=== PATIENT | female | born 1990 | race Caucasian/White ===

== ENCOUNTER 2017-08-22 13:03 | Emergency (ER) | payer OTHER, BC ==
[2017-08-22 13:10] VITALS: BP 120/73; PULSE 89; RESP 16; TEMP 97.7; O2SAT 97
[2017-08-22] MEDS ORDERED: ONDANSETRON DISINTEGRATING 4 MG TAB PO ONE (13:10)
[2017-08-22] MEDS ORDERED: ONDANSETRON DISINTEGRATING 4 MG TAB ONE (13:11)
--- NOTE | 2017-08-22 13:31 | EDPHY ---
H & P Stated Complaint: vomit/diarrhea since this am, h/a Time Seen by Provider: 08/22/17 13:30 - Personal History LMP (Females 10-55): 8-14 Days Ago Current Tetanus/Diphtheria Vaccine: Unsure Current Tetanus Diphtheria and Acellular Pertussis (TDAP): Unsure - Medical/Surgical History Hx Asthma: No Hx Chronic Respiratory Disease: No Hx Diabetes: No Hx Cardiac Disease: No Hx Renal Disease: No Hx Cirrhosis: No Hx Alcoholism: No Hx HIV/AIDS: No Hx Splenectomy or Spleen Trauma: No Other PMH: denies - Social History Smoking Status: Never smoked Constitutional: Initial Vital Signs Temperature (C) 36.5 C 08/22/17 13:06 Heart Rate 89 08/22/17 13:06 Respiratory Rate 16 08/22/17 13:06 Blood Pressure 120/73 08/22/17 13:06 O2 Sat (%) 97 08/22/17 13:06 O2 Delivery Mode Room Air Allergies/Adverse Reactions: tetracycline Allergy (Verified 08/22/17 13:06) Home Medications: Medication Instructions Recorded Ondansetron Odt [Zofran Odt 4 mg 4 mg PO Q4 PRN #10 tab 08/22/17 (RX)] Medical Decision Making ED Course/Re-evaluation: CHIEF COMPLAINT: N/V/D, headache HISTORY OF PRESENT ILLNESS: The patient is a 26 y/o female complaining of a frontal headache onset 04:00 this morning, 9.5 hours ago. She developed nausea and vomiting around 10:00 and then subsequently developed diarrhea. Eating and drinking aggravate her symptoms. No fever, abdominal pain, cough, cold, sore throat, earache, chest pain, dyspnea. She is normally healthy. REVIEW OF SYSTEMS: A 10 point review of systems was performed and is negative with the exception of the elements mentioned in the history of present illness. PHYSICAL EXAM: HR, BP, O2 Sat, RR. Temp noted General Appearance: Alert, well hydrated, appropriate, and non-toxic appearing. Head: Atraumatic without scalp tenderness or obvious injury Eyes: Pupils equal, round, reactive to light and accommodation, EOMI, no trauma , no injection. Nose: Atraumatic, no rhinorrhea, clear. Throat: There is no erythema or exudates, no lesions, normal tonsils, mucus membranes moist. Neck: Supple Respiratory: No retractions, no distress, no wheezes, and no accessory muscle use. Lungs are clear to auscultation bilaterally. Cardiovascular: Regular rate and rhythm, no murmurs, rubs, or gallops. Good capillary refill all extremities. Gastrointestinal: Abdomen is soft, nontender, non-distended, no masses, no rebound, no guarding, no peritoneal signs. Musculoskeletal: Normal active ROM of all extremities, atraumatic. Neurological: Alert, appropriate, and interactive. The patient has non-focal cranial nerves, motor, sensory, and cerebellar exam. Skin: No rashes, good turgor, no nodules on palpation. Past medical history: Denies Past surgical history: Denies Family history: Noncontributory Social history: Employed DIFFERENTIAL DIAGNOSIS: The differential diagnosis for the patient's nausea and vomiting included but was not limited to gastroenteritis, gastritis, appendicitis, and medication side effect. MEDICAL DECISION MAKING: This is a healthy and well-appearing 26 y/o female complaining of 9.5-hour history of headache with subsequent N/V/D developing through the morning. She has a benign abdomen and is afebrile here. Normal neuro exam. Symptoms consistent with infectious gastroenteritis. Plan for IV, ISTAT, and symptom management. 1L IV NS, 12.5mg IV Phenergan ordered. 4mg PO Zofran administered in triage. BGL mildly low around 67, likely because patient has not been able to eat much today. Patient's symptoms have improved upon reassessment. Abdomen remains benign. Patient will be discharged home with standard gastroenteritis care and follow up instructions. Script for Zofran given and return precautions discussed. She is comfortable with this plan. - Data Points Laboratory Results: 08/22/17 13:35 POC Hgb 16.0 gm/dL gm/dL (12.6-16.3) POC Hct 47 % % (38-47) POC Sodium 142 mEq/L mEq/L (135-145) POC Potassium 4.1 mEq/L mEq/L (3.3-5.0) POC Chloride 101 mEq/L mEq/L (97-110) POC BUN 20 mg/dL mg/dL (7-23) POC Creatinine 0.7 mg/dL mg/dL (0.6-1.0) POC Glucose 67 mg/dL L mg/dL (70-100) Medications Given: Discontinued Medications Sodium Chloride (Ns) 1,000 mls @ 0 mls/hr IV ONCE ONE PRN Reason: Wide Open Stop: 08/22/17 14:03 Last Admin: 08/22/17 14:04 Dose: 1,000 mls Metoclopramide HCl (Reglan Injection) 10 mg IVP EDNOW ONE Stop: 08/22/17 13:37 Last Admin: 08/22/17 14:05 Dose: Not Given Ondansetron HCl (Zofran Odt) 4 mg PO EDNOW ONE Stop: 08/22/17 13:11 Last Admin: 08/22/17 13:12 Dose: 4 mg Promethazine HCl (Phenergan) 12.5 mg IVP EDNOW ONE Stop: 08/22/17 14:01 Last Admin: 08/22/17 14:05 Dose: 12.5 mg Point of Care Test Results: 08/22/17 13:35 POC Sodium 142 POC Potassium 4.1 POC Chloride 101 POC BUN 20 POC Creatinine 0.7 POC Glucose 67 L Departure - Departure Disposition: Home, Routine, Self-Care Clinical Impression: Acute gastroenteritis Condition: Good Instructions: Gastroenteritis (ED) Additional Instructions: 1. Increase fluid intake as tolerated. Rest. 2. Use Zofran as prescribed as needed for nausea and vomiting. 3. Use Imodium as directed on the packaging if needed for diarrhea. 4. Practice good hand hygiene and limit contact with others while you have diarrhea as you are likely contagious. 5. Follow up with your primary care provider for unimproved symptoms over the next couple days. 6. Return to the ED for worsening of condition. Referrals: Ana Mayen MD [Medical Doctor] - As per Instructions [facility],. [Clinic] - As per Instructions Prescriptions: Ondansetron Odt [Zofran Odt 4 mg (RX)] 4 mg PO Q4 PRN #10 tab PRN Reason: Nausea/Vomiting, Use 1st Report Scribed for: Regna Nation Report Scribed by: Guerline Dominguez Date of Report: 08/22/17 Time of Report: 13:36
[2017-08-22] MEDS ORDERED: METOCLOPRAMIDE 10 MG/2 ML VIAL IVP ONE (13:36)
[2017-08-22] MEDS ORDERED: PROMETHAZINE HCL 25 MG/ML INJ ONE (13:58)
[2017-08-22] MEDS ORDERED: PROMETHAZINE HCL 25 MG/ML INJ IVP ONE (14:00)
[2017-08-22] MEDS ORDERED: NS 1,000 ML IV ONE (14:02)
== END 2017-08-22 15:15 | disposition home or self-care (01) ==
DX: K52.9 Noninfective gastroenteritis and colitis, unspecified (principal)
CPT/HCPCS: 82947-QW; 96374; J2550